=== PATIENT | male | born 1965 | race Caucasian/White ===

== ENCOUNTER 2017-10-22 12:08 | Emergency (ER) | payer OTHER ==
[2017-10-22 12:23] VITALS: BP 144/77
--- NOTE | 2017-10-22 12:27 | UC ---
Lower Extremity/Ankle HPI - History of Current Complaint Chief Complaint: UCLowerExtremity Stated Complaint: FOOT INJURY - Allergies/Home Medications Allergies/Adverse Reactions: Allergies Allergy/AdvReac Type Severity Reaction Status Date / Time Codeine Allergy Headache Verified 10/22/17 12:21 Home Medications: Home Medications Ibuprofen [Advil] 400 mg PO 10/22/17 [History] Pseudoephedrine-Guaifenesin [Mucinex D 60-600 mg] 1 tab PO 10/22/17 [History] PMH/Surg Hx/FS Hx/Imm Hx Other History Of: Negative For: Anticoagulant Therapy - Surgical History Surgical History: Yes Surgery Procedure, Year, and Place: RIGHT SHOULDER - Family History Known Family History: Positive: None - Social History Alcohol Use: Occasionally Substance Use Type: None Smoking Status (MU): Never Smoked Tobacco - Immunization History Most Recent Influenza Vaccination: fall 2014 Most Recent Tetanus Shot: UTD Most Recent Pneumonia Vaccination: never Physical Exam Vital Signs: Initial Vital Signs Temp 95.2 F 10/22/17 12:15 Pulse 82 10/22/17 12:15 Resp 18 10/22/17 12:15 BP 144/77 10/22/17 12:15 Pulse Ox 96 10/22/17 12:15 Discharge - Discharge Plan Referrals: Marian Damian [Primary Care Provider] -
--- NOTE | 2017-10-22 12:40 | UC ---
Lower Extremity/Ankle HPI - HPI Summary HPI Summary: Patient presents with a past medical history of LLE DVT and PE. He was on Xarelo at that time. He states that last week he was ill and in bed for a few days, and when he got up he had LLE calf pain. He also states that he has been having leg pain since and now reports some leg swelling. He denies any worse dyspnea, chest pain or hemoptysis, fever or chills. - History of Current Complaint Chief Complaint: UCLowerExtremity Stated Complaint: FOOT INJURY Time Seen by Provider: 10/22/17 12:26 Hx Obtained From: Patient Onset/Duration: Sudden Onset Severity Initially: Moderate Severity Currently: Moderate Aggravating Factor(s): Standing, Ambulation Alleviating Factor(s): Rest Able to Bear Weight: Yes - Risk Factors Gout Risk Factors: Negative DVT Risk Factors: Prior DVT, Prior PE Septic Arthritis Risk Factor: Negative - Allergies/Home Medications Allergies/Adverse Reactions: Allergies Allergy/AdvReac Type Severity Reaction Status Date / Time Codeine Allergy Headache Verified 10/22/17 12:21 Home Medications: Home Medications Ibuprofen [Advil] 400 mg PO 10/22/17 [History] Pseudoephedrine-Guaifenesin [Mucinex D 60-600 mg] 1 tab PO 10/22/17 [History] PMH/Surg Hx/FS Hx/Imm Hx Previously Healthy: Yes Cardiovascular History: Deep Vein Thrombosis Other History Of: Negative For: Anticoagulant Therapy - Surgical History Surgical History: Yes Surgery Procedure, Year, and Place: RIGHT SHOULDER - Family History Known Family History: Positive: None - Social History Occupation: Employed Full-time Lives: Alone Alcohol Use: Occasionally Substance Use Type: None Smoking Status (MU): Never Smoked Tobacco - Immunization History Most Recent Influenza Vaccination: fall 2014 Most Recent Tetanus Shot: UTD Most Recent Pneumonia Vaccination: never Review of Systems Constitutional: Negative Skin: Negative Eyes: Negative ENT: Negative Respiratory: Negative Cardiovascular: Negative Gastrointestinal: Negative Genitourinary: Negative Motor: Negative Neurovascular: Negative Musculoskeletal: Edema, Myalgia Neurological: Negative Psychological: Negative Is Patient Immunocompromised?: No All Other Systems Reviewed And Are Negative: Yes Physical Exam Triage Information Reviewed: Yes Appearance: Well-Appearing Vital Signs: Initial Vital Signs Temp 95.2 F 10/22/17 12:15 Pulse 82 10/22/17 12:15 Resp 18 10/22/17 12:15 BP 144/77 10/22/17 12:15 Pulse Ox 96 10/22/17 12:15 Vital Signs Reviewed: Yes Eye Exam: Normal ENT Exam: Normal Neck exam: Normal Neck: Positive: 1 Respiratory Exam: Normal Cardiovascular Exam: Normal Abdominal Exam: Normal Musculoskeletal: Positive: Other: - LLL; Inspection, limd erythema noted of calf. Palpation, tenderness of papation of the medical calf and lower leg. no palpabel cord. Vasc;1+ edema Neuro, no dificits noted to touch distally. Neurological Exam: Normal Psychological Exam: Normal Skin Exam: Normal Lower Extremity Course/Dx - Course Course Of Treatment: Patient presents with a past medical history of DVT?PE. He is no longer on anticoaguants. He was in bed for several days due to illness and now complaints of LLE leg pain, swelling, and redness. He was evaluated and history is concerning for recurrent DVT and the patient was referred to the ED. At the time of discharge the patient was in no respiratory distress, with normal vital signs and afebrile. He was stable and approprriate to drive self to ED. - Differential Dx/Diagnosis Differential Diagnosis/HQI/PQRI: Other - leg pain Provider Diagnoses: leg pain Discharge - Discharge Plan Condition: Stable Disposition: HOME Patient Education Materials: Leg Pain (ED) Referrals: Marian Damian [Primary Care Provider] - Additional Instructions: r/o dvt
== END 2017-10-22 12:34 | disposition home or self-care (01) ==
LOC: UCEAST 12:08
DX: M79.662 Pain in left lower leg (principal); Z86.718 Personal history of other venous thrombosis and embolism; Z86.711 Personal history of pulmonary embolism; Z72.89 Other problems related to lifestyle
CPT/HCPCS: 99211; G0463

== ENCOUNTER 2017-10-22 12:52 | Emergency (ER) | payer BC, OTHER ==
--- NOTE | 2017-10-22 14:30 | RAD ---
INDICATION: LEFT distal calf and ankle pain. Previous DVT COMPARISON: September 19, 2016 and December 26, 2015 TECHNIQUE: Roque scale, color Doppler, and spectral analysis of the deep veins of the LEFT lower extremity. Vessel compression, phasicity, and augmentation assessed. REPORT: The LEFT common femoral, great saphenous, profunda femoral, femoral, popliteal, peroneal, and posterior tibial veins are patent. Segmental thrombosis of the great saphenous vein at the mid to distal LEFT calf corresponding with the region of clinical concern. Patency of the RIGHT common femoral vein documented. IMPRESSION: 1. No evidence for LEFT lower extremity deep venous thrombosis. 2. Superficial venous thrombophlebitis involving the distal great saphenous vein at the mid to distal LEFT calf corresponding with the region of clinical concern.
[2017-10-22] MEDS ORDERED: Ibuprofen TAB* 600 MG PO ONE (14:32)
[2017-10-22 14:59] VITALS: BP 146/90
--- NOTE | 2017-10-22 16:51 | ED ---
Lower Extremity - HPI Summary HPI Summary: Patient presents to the ED with left medial pain just superior to the ankle with slight erythema and warmth. Palpable cord appreciated. Pain began several days ago and consistently worsening. He notes worse pain with walking and better with rest. He has taken Ibuprofen without relief of pain. Has been using compression stockings without relief. 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 He states a few days ago he "tweaked" the ankle getting out of bed. Denies pain in the ankle now, but since that time he developed the redness and the warmth to the medial ankle which is now extending to the plantar surface of the foot. Denies other health problems and takes no medications currently. He states he will leave on a plane tomorrow for [place] and is concerned over the safety if he has a dvt. - History of Current Complaint Chief Complaint: EDExtremityLower Stated Complaint: LEFT LEG PAIN COMING FROM CC Time Seen by Provider: 10/22/17 13:07 Hx Obtained From: Patient Mechanism Of Injury: Twisted Onset of Pain: Immediate Onset/Duration: Hours Severity Initially: Moderate Severity Currently: Moderate Pain Intensity: 2 Pain Scale Used: 0-10 Numeric Timing: Constant Location: Is Discrete @ - left medial ankle radiating to the plantar surface of the foot Associated Signs And Symptoms: Positive: Swelling, Redness Aggravating Factor(s): Standing, Ambulation Alleviating Factor(s): Rest Able to Bear Weight: No - Risk Factors Gout Risk Factors: Age Over 40, Male DVT Risk Factors: Prior DVT - Allergies/Home Medications Allergies/Adverse Reactions: Allergies Allergy/AdvReac Type Severity Reaction Status Date / Time Codeine Allergy Headache Verified 10/22/17 12:21 PMH/Surg Hx/FS Hx/Imm Hx Previously Healthy: Yes Endocrine/Hematology History: Denies: Hx Anticoagulant Therapy, Hx Blood Disorders, Hx Blood Transfusions, Hx Diabetes, Hx Systemic Lupus Erythematosus Cardiovascular History: Denies: Hx Congestive Heart Failure, Hx Hypertension, Hx Pacemaker/ICD History: Denies: Hx Dialysis, Hx Renal Disease Musculoskeletal History: Denies: Hx Rheumatoid Arthritis Sensory History: Reports: Hx Contacts or Glasses Denies: Hx Hearing Aid Opthamlomology History: Reports: Hx Contacts or Glasses Psychiatric History: Reports: Other Psychiatric Issues/Disorders - claustrophobia Denies: Hx Panic Disorder - Surgical History Surgery Procedure, Year, and Place: RIGHT SHOULDER - Immunization History Hx Pertussis Vaccination: No Immunizations Up to Date: Unable to Obtain/Confirm Infectious Disease History: No Infectious Disease History: Denies: Traveled Outside the [place] in Last 30 Days - Family History Known Family History: Positive: None - Social History Occupation: Employed Full-time Lives: With Family Alcohol Use: Occasionally Hx Substance Use: No Substance Use Type: Reports: None Hx Tobacco Use: No Smoking Status (MU): Never Smoked Tobacco Review of Systems Constitutional: Negative Negative: Fever, Chills, Fatigue Eyes: Negative Cardiovascular: Negative Respiratory: Negative Positive: no symptoms reported, see HPI Musculoskeletal: Negative Positive: Other - left medial ankle radiating to the plantar surface of the foot Neurological: Negative Psychological: Normal All Other Systems Reviewed And Are Negative: Yes Physical Exam Triage Information Reviewed: Yes Vital Signs On Initial Exam: Initial Vitals Temp Pulse Resp BP Pulse Ox 96.9 F 75 20 149/91 98 10/22/17 12:55 10/22/17 12:55 10/22/17 12:55 10/22/17 12:55 10/22/17 12:55 Vital Signs Reviewed: Yes Appearance: Positive: Well-Appearing, Well-Nourished Skin: Positive: Warm, Skin Color Reflects Adequate Perfusion, Other - left medial ankle radiating to the plantar surface of the foot Head/Face: Positive: Normal Head/Face Inspection Eyes: Positive: Normal, ELMO, Conjunctiva Clear Neck: Positive: Supple, No Lymphadenopathy Respiratory/Lung Sounds: Positive: Clear to Auscultation, Breath Sounds Present Cardiovascular: Positive: RRR, Pulses are Symmetrical in both Upper and Lower Extremities Musculoskeletal: Positive: Strength/ROM Intact Neurological: Positive: Speech Normal Psychiatric: Positive: Normal, Affect/Mood Appropriate AVPU Assessment: Alert Diagnostics - Vital Signs Vital Signs Temp Pulse Resp BP Pulse Ox 10/22/17 14:52 97.9 F 74 16 146/90 99 10/22/17 12:55 96.9 F 75 20 149/91 98 - Laboratory Lab Statement: Any lab studies that have been ordered have been reviewed, and results considered in the medical decision making process. Lower Extremity Course/Dx - Course Course Of Treatment: left medial ankle radiating to the plantar surface of the foot with slight erythema, palpable cord and warmth just superior to the medial ankle. IMPRESSION: 1. No evidence for LEFT lower extremity deep venous thrombosis. 2. Superficial venous thrombophlebitis involving the distal great saphenous vein at the. mid to distal LEFT calf corresponding with the region of clinical concern. Per UTD, Follow-up in 2 to 3 days for GSV to assess for tributary vein involvment. However the location of his pain is not associated with the location of the potential superifical thrombophlebitis which is medial thigh. I have encouraged ibuprofen 600mg four times daily for at least 5 days and follow up with PCP. He is leaving tomorrow on a plane and will not be back for 1 week. I have encouraged ambulation while on the plane and see PCP when arrive back to states or if symptoms worse - needs to see physician in [place]. Treatment options explained to patient. Patient understands the plan, voices no concerns at this time and understands the return precatuions given to them if any symptoms become worse. They are OK for discharge at this time. VS stable on discharge. - Diagnoses Differential Diagnosis/HQI/PQRI: Positive: Bursitis, Cellulitis, DVT, Gout, Infection, Phlebitis Provider Diagnoses: Superficial thrombophlebitis Discharge - Discharge Plan Condition: Stable Disposition: HOME Patient Education Materials: Superficial Thrombophlebitis (ED) Referrals: Marian Damian [Primary Care Provider] - Additional Instructions: I recommend you follow up with your PCP for a recheck in 2-3 days. If you are about to fly in a plane - you need to walk frequently and keep moving - take aspirin prior to take off! Ibuprofen 600mg four times daily Elevate Ice If symptoms become worse - return to the ED or see your PCP As discussed, these can turn into a DVT and must be followed accordingly
== END 2017-10-22 14:52 | disposition home or self-care (01) ==
LOC: ED 12:52
DX: I80.02 Phlebitis and thrombophlebitis of superficial vessels of left lower extremity (principal); Z86.718 Personal history of other venous thrombosis and embolism
CPT/HCPCS: 99282; A9270-GY